=== PATIENT | male | born 1985 | race Hispanic/Latino ===

== ENCOUNTER 2017-01-05 15:19 | Emergency (ER) | payer OTHER ==
[2017-01-05 15:39] VITALS: BP 130/70; PULSE 98; RESP 18; TEMP 98.6; O2SAT 100
--- NOTE | 2017-01-05 17:38 | ED PDOC ---
HPI: Back Time Seen by Provider: 01/05/17 17:11 Chief Complaint (Nursing): Back Pain Chief Complaint (Provider): neck pain History Per: Patient History/Exam Limitations: no limitations Onset/Duration Of Symptoms: Hrs (x 8) Current Symptoms Are (Timing): Still Present Additional Complaint(s): Miguel Ortega is a 31 year old male, with no previous medical history, who presents to the ED with complaints of neck pain ongoing for 8 hours after he was cleaning. Pt reports neck feels tight. Pt states this neck pain usually happens once a month. Pt reports going to see his chiropractor who refused to provide treatment stating "it was too inflamed". Pt denies self medicating to alleviate symptoms. Pt reports no numbness, tingling or trauma. PMD: none provided Past Medical History Reviewed: Historical Data, Nursing Documentation, Vital Signs Vital Signs: Last Vital Signs Temp 98.6 F 01/05/17 15:37 Pulse 98 H 01/05/17 15:37 Resp 18 01/05/17 15:37 BP 130/70 01/05/17 15:37 Pulse Ox 100 01/05/17 15:37 - Medical History PMH: No Chronic Diseases - Family History Family History: States: Unknown Family Hx - Home Medications Home Medications: Ambulatory Orders Medication Instructions Recorded Ibuprofen [Motrin Tab] 800 mg PO Q6H PRN #20 tab 01/05/17 diaZEpam [Valium] 5 mg PO Q6H PRN #15 tab 01/05/17 - Allergies Allergies/Adverse Reactions: Allergies Allergy/AdvReac Type Severity Reaction Status Date / Time Penicillins Allergy RASH Verified 01/05/17 15:36 Review of Systems ROS Statement: Except As Marked, All Systems Reviewed And Found Negative Musculoskeletal: Positive for: Neck Pain Neurological: Negative for: Numbness, Other (tingling ) Physical Exam - Reviewed Nursing Documentation Reviewed: Yes Vital Signs Reviewed: Yes - Physical Exam Appears: Positive for: Well, Non-toxic, No Acute Distress Head Exam: Positive for: ATRAUMATIC, NORMAL INSPECTION, NORMOCEPHALIC Neck: Positive for: Normal, Painless ROM, Supple Back: Positive for: Other (right cervical paraspinal tenderness). Negative for : Vertebral Tenderness, Muscle Spasm Extremity: Positive for: Normal ROM Neurologic/Psych: Positive for: Alert, Oriented - ECG O2 Sat by Pulse Oximetry: 100 Medical Decision Making Medical Decision Making: Initial Impression: Neck pain r/o fracture Initial Plan: * valium * motrin * X-ray c-spine * reevaluation C-spine xray normal 18:25 - Pt reports feeling better and is asking to leave. Scribe Attestation: Documented by Caitlin Owens, acting as a scribe for Diamond Ac PA-C. Provider Scribe Attestation: All medical record entries made by the Scribe were at my direction and personally dictated by me. I have reviewed the chart and agree that the record accurately reflects my personal performance of the history, physical exam, medical decision making, and the department course for this patient. I have also personally directed, reviewed, and agree with the discharge instructions and disposition. Disposition - Clinical Impression Clinical Impression: Muscle spasm - Patient ED Disposition Is Patient to be Admitted: No Counseled Patient/Family Regarding: Diagnosis, Need For Followup - Disposition Referrals: FAMILY PROVIDER,JEWELS [Primary Care Provider] - [facility] [Outside] Disposition: Routine/Home Disposition Time: 18:25 Condition: GOOD Prescriptions: Ibuprofen [Motrin Tab] 800 mg PO Q6H PRN #20 tab PRN Reason: Pain diaZEpam [Valium] 5 mg PO Q6H PRN #15 tab PRN Reason: Pain Instructions: Cervical Sprain (ED)
--- NOTE | 2017-01-06 09:27 | RAD ---
PROCEDURE: Cervical Spine Radiographs. HISTORY: Pain. COMPARISON: None. FINDINGS: BONES: Alignment maintained. No fracture. Dens intact but evaluation technically limited in the frontal projection. DISC SPACES: Normal. SOFT TISSUES: Normal. No prevertebral soft tissue swelling. OTHER FINDINGS: None. IMPRESSION: No evidence of fracture or dislocation. No evidence of degenerative disc disease.
== END 2017-01-05 18:31 | disposition home or self-care (01) ==
LOC: H.ER 15:19
DX: M62.838 Other muscle spasm (principal)

== ENCOUNTER 2017-06-04 00:01 | Emergency (ER) | payer OTHER ==
[2017-06-04 00:22] VITALS: RESP 16
--- NOTE | 2017-06-04 00:53 | ED PDOC ---
HPI:Nausea, Vomiting, Diarrhea Time Seen by Provider: 06/04/17 00:15 Chief Complaint (Nursing): GI Problem Chief Complaint (Provider): Vomiting History Per: Patient History/Exam Limitations: no limitations Onset/Duration Of Symptoms: Days (x1) Current Symptoms Are (Timing): Still Present Quality Of Discomfort: "Pain" Associated Symptoms: Vomiting. denies: Fever, Diarrhea Additional Complaint(s): 32 year old male presents to ED with complaints of vomiting x1 day and has a past medical history of gastritis. (-) fever or diarrhea, (+) epigastric discomfort. Patient notes having a similar presentation x1 month ago and confirms that it resolved on its own. States that he has taken Prilosec in the past with resolution of symptoms, but is not taking anything right now. PCP: JONEL Past Medical History Reviewed: Historical Data, Nursing Documentation, Vital Signs Vital Signs: Last Vital Signs Temp 98.7 F 06/04/17 00:19 Pulse 100 H 06/04/17 00:19 Resp 16 06/04/17 00:19 BP 140/83 06/04/17 00:19 Pulse Ox 99 06/04/17 00:19 - Medical History PMH: Gastritis - Surgical History Other surgeries: Orthopedic surgery, ablation for WPW - Family History Family History: States: Unknown Family Hx - Social History Current smoker - smoking cessation education provided: No Ex-Smoker (has not smoked in the last 12 months): No Alcohol: None Drugs: Denies - Home Medications Home Medications: Ambulatory Orders Medication Instructions Recorded Ibuprofen [Motrin Tab] 800 mg PO Q6H PRN #20 tab 01/05/17 diaZEpam [Valium] 5 mg PO Q6H PRN #15 tab 01/05/17 Famotidine [Pepcid] 20 mg PO BID PRN #10 tab 06/04/17 Ondansetron [Zofran] 4 mg PO Q6H PRN #6 tab 06/04/17 - Allergies Allergies/Adverse Reactions: Allergies Allergy/AdvReac Type Severity Reaction Status Date / Time Penicillins Allergy RASH Verified 06/04/17 00:19 Review of Systems ROS Statement: Except As Marked, All Systems Reviewed And Found Negative Constitutional: Negative for: Fever Gastrointestinal: Positive for: Vomiting, Abdominal Pain. Negative for: Diarrhea Physical Exam - Reviewed Nursing Documentation Reviewed: Yes Vital Signs Reviewed: Yes - Physical Exam Appears: Positive for: Non-toxic, No Acute Distress Head Exam: Positive for: ATRAUMATIC, NORMOCEPHALIC Skin: Positive for: Normal Color, Warm, Dry Eye Exam: Positive for: Normal appearance ENT: Positive for: Normal ENT Inspection Neck: Positive for: Normal Cardiovascular/Chest: Positive for: Regular Rate, Rhythm, Tachycardia. Negative for: Bradycardia Respiratory: Positive for: Normal Breath Sounds. Negative for: Respiratory Distress Gastrointestinal/Abdominal: Positive for: Bowel Sounds, Soft. Negative for: Tenderness Back: Positive for: Normal Inspection Extremity: Positive for: Normal ROM. Negative for: Deformity Neurologic/Psych: Positive for: Alert, Oriented. Negative for: Motor/Sensory Deficits - Laboratory Results Result Diagrams: 06/04/17 01:01 06/04/17 01:01 - ECG O2 Sat by Pulse Oximetry: 99 (RA) Pulse Ox Interpretation: Normal Medical Decision Making Medical Decision Makin Initial impression: gastritis Initial plan: * Labs * Lipase * NS IV * Pepcid 20mg IVP * Zofran 4mg IV * Urine C&S * UA * Re-eval 0137 Labs reviewed: slightly elevated WBC. Likely due to persistent vomiting. 0145 Upon re-evaluation, patient is feeling better and tolerating PO. Patient is stable for discharge home. Scribe Attestation: Documented by Gabriela Woodson acting as a scribe for Anna Cottrell MD. Scribe Attestation: All medical record entries made by the Scribe were at my direction and personally dictated by me. I have reviewed the chart and agree that the record accurately reflects my personal performance of the history, physical exam, medical decision making, and the department course for this patient. I have also personally directed, reviewed, and agree with the discharge instructions and disposition. Disposition - Clinical Impression Clinical Impression: Gastritis - Patient ED Disposition Is Patient to be Admitted: No Counseled Patient/Family Regarding: Studies Performed, Diagnosis, Need For Followup - Disposition Referrals: Serafin Bean MD [Staff Provider] - Disposition: Routine/Home Disposition Time: 01:45 Condition: IMPROVED Additional Instructions: FOLLOW UP WITH GI DOCTOR INSTRUCTED RETURN TO THE ED WITH ANY WORSENING OR CONCERNING SYMPTOMS Prescriptions: Famotidine [Pepcid] 20 mg PO BID PRN #10 tab PRN Reason: Heartburn Ondansetron [Zofran] 4 mg PO Q6H PRN #6 tab PRN Reason: Nausea/Vomiting Instructions: Gastritis (ED) Forms: [facility] (Hungarian)
[2017-06-04] MEDS: Sodium Chloride 0.9% 1,000 ML IV STA (00:56)
[2017-06-04 01:12] LABS: BASO % 0.3 % (0.0-2.0); EOS % 0.2 % (0.0-4.0); HEMATOCRIT 46.2 % (35.0-51.0); LYMPH # 2.3 K/uL (1.0-4.3); LYMPH % 17.9 % (20.0-40.0); MEAN CORPUSCULAR HEMOGLOBIN 29.6 pg (27.0-31.0); MEAN CORPUSCULAR HGB CONC 32.8 g/dL (33.0-37.0); MONO # 1.8 K/uL (0.0-0.8); NEUT # 8.7 K/uL (1.8-7.0); NEUT % 67.6 % (50.0-75.0); RED CELL DISTRIBUTION WIDTH 13.1 % (11.5-14.5); WHITE BLOOD COUNT 12.9 K/uL (4.8-10.8)
[2017-06-04 01:23] LABS: ALB/GLOB RATIO 1.7 (1.0-2.1); ALKALINE PHOSPHATASE 62 U/L (38-126); ALT/SGPT 51 U/L (21-72); AST/SGOT 38 U/L (17-59); BILIRUBIN,TOTAL 0.9 mg/dl (0.2-1.3); BLOOD UREA NITROGEN 23 mg/dl (9-20); CALCIUM 10.2 mg/dL (8.4-10.2); CARBON DIOXIDE 26 mmol/L (22-30); CHLORIDE 98 mmol/L (98-107); GFR AFRICAN-AMERICAN > 60; GLUCOSE,RANDOM 102 mg/dL (75-110); LIPASE 74 U/L (23-300); POTASSIUM 3.7 MMOL/L (3.6-5.0); SODIUM 138 mmol/l (132-148); TOTAL PROTEIN 7.6 G/DL (6.3-8.2)
[2017-06-04 03:23] VITALS: BP 122/78; PULSE 86; TEMP 98.3
[2017-06-05 05:36] VITALS: O2SAT 99
== END 2017-06-04 03:23 | disposition home or self-care (01) ==
LOC: H.ER 00:01
DX: K29.70 Gastritis, unspecified, without bleeding (principal); I45.6 Pre-excitation syndrome; Z88.0 Allergy status to penicillin
CPT/HCPCS: 80053; 83690; 85025; 96361; 96374; 96375; 96376; 99283; J2405; J7040

== ENCOUNTER 2017-06-05 13:10 | Emergency (ER) | payer OTHER ==
[2017-06-05 13:22] VITALS: BP 146/80; PULSE 65; RESP 18; TEMP 98; O2SAT 99
--- NOTE | 2017-06-05 13:49 | ED PDOC ---
HPI:Nausea, Vomiting, Diarrhea Time Seen by Provider: 06/05/17 13:40 Chief Complaint (Nursing): ENT Problem Chief Complaint (Provider): Mouth sores, vomiting History Per: Patient History/Exam Limitations: no limitations Onset/Duration Of Symptoms: Intermittent Episodes Current Symptoms Are (Timing): Better Additional Complaint(s): Miguel is a 32 y/o male who presents to the ED for evaluation of mouth sores, onset today. Seen here on 06/04 for vomiting, diagnosed with gastritis, and prescribed Zofran and Pepcid with referral to GI specialist Dr. Serafin Bean. Patient states he has recurrent cycles of heartburn/vomiting in past , and will develop mouth sores associated with pain and swelling 3-4 days after. Notes similar discomfort in throat x 2 days. Took 3 tabs of 25 mg Benadryl earlier today and states he has been taking the Pepcid and using a Lidocaine mouth wash without relief. Patient reports he has not eaten in 4 days , because his whole mouth blows up when he tries to eat or drink. Now states he cant sleep and has a migraine. Patient is frustrated due to difficulty with insurance and does not want to wait 3-4 days to see a GI doctor. PMD: None Past Medical History Reviewed: Historical Data, Nursing Documentation, Vital Signs Vital Signs: Last Vital Signs Temp 98.0 F 06/05/17 13:20 Pulse 65 06/05/17 13:20 Resp 18 06/05/17 13:20 BP 146/80 06/05/17 13:20 Pulse Ox 99 06/05/17 13:20 - Medical History PMH: Gastritis - Surgical History Surgical History: No Surg Hx - Family History Family History: States: Unknown Family Hx - Social History Current smoker - smoking cessation education provided: No Alcohol: Occasional Drugs: Denies - Home Medications Home Medications: Ambulatory Orders Medication Instructions Recorded Ibuprofen [Motrin Tab] 800 mg PO Q6H PRN #20 tab 01/05/17 diaZEpam [Valium] 5 mg PO Q6H PRN #15 tab 01/05/17 Famotidine [Pepcid] 20 mg PO BID PRN #10 tab 06/04/17 Ondansetron [Zofran] 4 mg PO Q6H PRN #6 tab 06/04/17 Omeprazole Magnesium [Prilosec Otc] 20 mg PO DAILY #14 tablet. 06/05/17 - Allergies Allergies/Adverse Reactions: Allergies Allergy/AdvReac Type Severity Reaction Status Date / Time Penicillins Allergy RASH Verified 06/05/17 13:51 Review of Systems ROS Statement: Except As Marked, All Systems Reviewed And Found Negative ENT: Positive for: Mouth Pain (mouth sores) Gastrointestinal: Positive for: Nausea, Vomiting (associated with reflux/ heartburn, occuring intermittently) Neurological: Positive for: Headache Physical Exam - Reviewed Nursing Documentation Reviewed: Yes Vital Signs Reviewed: Yes - Physical Exam Appears: Positive for: Non-toxic, No Acute Distress Head Exam: Positive for: ATRAUMATIC, NORMAL INSPECTION, NORMOCEPHALIC Skin: Positive for: Normal Color, Warm, Dry Eye Exam: Positive for: EOMI, Normal appearance, PERRL ENT: Positive for: Normal ENT Inspection, Other (No visualization of sores) Neck: Positive for: Normal, Painless ROM Extremity: Positive for: Normal ROM. Negative for: Deformity Neurologic/Psych: Positive for: Alert, Oriented - ECG O2 Sat by Pulse Oximetry: 99 (RA) Pulse Ox Interpretation: Normal - Progress ED Course And Treament: Patient offered tylenol for pain but states he cannot take this medication due to ongoing stomach issues. Offered magic mouthwash for discomfort in mouth, but does not want it as he has tried lidocaine in past. Patient would like to see GI MD in ED but explained to him that he would need to schedule outpatient to see GI. Encouraged patient to change diet to less citric/less oily in nature as he states he is unable to tolerate juices. We will prescribe prilosec daily 1/2 hour prior to meal and encourage f/u with GI outpatient. Medical Decision Making Medical Decision Making: Time: 13:49 Initial Plan: --Patient offered Tylenol liquid mouth wash, and declined. --Advised patient on the importance of follow up with GI. Provided referral. --Patient is medically stable and will be discharged home with Rx for Prilosec. Scribe Attestation: Documented by Peace Ortega, acting as a scribe for Elmer Rodriguez PA-C Provider Scribe Attestation: All medical record entries made by the Scribe were at my direction and personally dictated by me. I have reviewed the chart and agree that the record accurately reflects my personal performance of the history, physical exam, medical decision making, and the department course for this patient. I have also personally directed, reviewed, and agree with the discharge instructions and disposition. Disposition - Clinical Impression Clinical Impression: Gastritis - Patient ED Disposition Is Patient to be Admitted: No Counseled Patient/Family Regarding: Diagnosis, Need For Followup - Disposition Referrals: Serafin Bean MD [Staff Provider] - Disposition: Routine/Home Disposition Time: 13:49 Condition: STABLE Prescriptions: Omeprazole Magnesium [Prilosec Otc] 20 mg PO DAILY #14 tablet. Instructions: Gastritis (ED) Forms: [employer] (Paraguayan)
== END 2017-06-05 14:00 | disposition home or self-care (01) ==
LOC: H.ER 13:10
DX: K29.70 Gastritis, unspecified, without bleeding (principal); Z88.0 Allergy status to penicillin